=== PATIENT | female | born 1995 | race Caucasian/White ===

== ENCOUNTER 2016-11-07 12:50 | Inpatient (IN) | payer MEDICAID, OTHER ==
[~2016-11-07] VITALS: Ht 152.4 cm; Wt 55.8 kg
[2016-11-07 13:48] VITALS: Ht 152.4 cm; Wt 55.8 kg
[2016-11-07] MEDS ORDERED: PRENAT PO (13:50)
[2016-11-07 14:36] LABS: ADD UMIC YES; URINE BILIRUBIN (Dip) 2+ (NEGATIVE); URINE BLOOD (Dip) 2+ (NEGATIVE); URINE COLOR YELLOW (YELLOW); URINE GLUCOSE (Dip) NEGATIVE (NEGATIVE); URINE KETONES (Dip) NEGATIVE (NEGATIVE); URINE LEUKOCYTE ESTERASE (Dip) TRACE (NEGATIVE); URINE NITRITE (Dip) NEGATIVE (NEGATIVE); URINE TOTAL PROTEIN (Dip) NEGATIVE (NEGATIVE); URINE UROBILINOGEN (Dip) 0.2 E.U./dL (0.1-1.0)
[2016-11-07 14:52] LABS: BACTERIA,URINE FEW; ICTOTEST POSITIVE (NEGATIVE)
[2016-11-07] MEDS: LACTATED RINGER'S 1,000 ML IV SCH ×2 (14:55→20:13)
[2016-11-07] MEDS ORDERED: LACTATED RINGER'S 1,000 ML IV SCH (15:06)
[2016-11-07] MEDS ORDERED: AMPICILLIN 2 GM/NS (PMX) 100 ML IV ONE (15:30)
[2016-11-07] MEDS ORDERED: LACTATED RINGER'S 1,000 ML IV PRN (15:30)
[2016-11-07] MEDS ORDERED: OXYTOCIN 30 UNITS/LR 500 ML IV PRN (15:30)
[2016-11-07] MEDS ORDERED: MISOPROSTOL 200 MCG TAB PR PRN (15:30)
[2016-11-07] MEDS ORDERED: METHYLERGONOVINE 0.2 MG INJ IM PRN (15:30)
[2016-11-07] MEDS ORDERED: CARBOPROST 250 MCG INJ IM PRN (15:30)
[2016-11-07] MEDS ORDERED: BUTORPHANOL 2 MG INJ IV PRN ×2 (15:30)
[2016-11-07] MEDS ORDERED: LIDOCAINE 1% (MPF) 30 ML INJ INJ PRN (15:30)
[2016-11-07] MEDS ORDERED: OXYTOCIN 30 UNITS/LR 500 ML IV SCH ×2 (15:30)
[2016-11-07] MEDS ORDERED: AMPICILLIN 2 GM/NS (PMX) 100 ML ONE (15:46)
[2016-11-07 16:01] LABS: ADD SCAN DIFF NO
[2016-11-07 16:04] LABS: BASOPHILS % 0.2 % (0.0-2.0); EOSINOPHILS % 0.1 % (0.0-7.0); HEMATOCRIT 40.2 % (37.0-47.0); HEMOGLOBIN 13.7 g/dl (12.0-16.0); LYMPHOCYTES # 1.5 10^3/ul (0.8-2.9); LYMPHOCYTES % 12.9 % (18.0-55.0); MEAN CORPUSCULAR HEMOGLOBIN 31.8 pg (29.0-33.0); MEAN CORPUSCULAR HGB CONC 34.1 g/dl (32.0-37.0); MEAN CORPUSCULAR VOLUME 93.3 fl (72.0-104.0); MEAN PLATELET VOLUME 13.4 fl (7.4-10.4); MONOCYTE # 0.6 10^3/ul (0.3-0.9); MONOCYTES % 5.1 % (0.0-13.0); NEUTROPHIL # 9.5 10^3/ul (1.6-7.5); NEUTROPHILS % 81.2 % (30.0-74.0); PLATELET COUNT 140 10^3/UL (140-415); RED BLOOD COUNT 4.31 10^6/ul (4.20-5.40); RED CELL DISTRIBUTION WIDTH 11.9 % (11.5-14.5); WHITE BLOOD COUNT 11.7 10^3/ul (4.8-10.8)
[2016-11-07 16:21] LABS: INR 0.84; PROTIME 11.5 Sec (12.2-14.2); PT RATIO 0.9
[2016-11-07 16:22] LABS: PARTIAL THROMBOPLASTIN TIME 23.5 Sec (25.0-35.0)
[2016-11-07] MEDS: AMPICILLIN 1 GM/NS (PMX) 50 ML IV SCH ×2 (20:13→23:39)
[2016-11-08] MEDS: AMPICILLIN 1 GM/NS (PMX) 50 ML IV SCH (03:30)
[2016-11-08] MEDS: LACTATED RINGER'S 1,000 ML IV* SCH ×3 (04:18→20:18)
--- NOTE | 2016-11-08 04:18 | LDN ---
Date/Time of Note Date/Time of Note DATE: 11/08/16 TIME: 04:17 Delivery Summary Placenta Delivered: Spontaneously Meconium: Thick Perineum intact?: Yes Perineal laceration repair: 1st degree vaginal laceration repair with 3-0 chromic Anesthesia type: Local Sponge & Needle done & correct: Yes All needle counts correct: Yes Any foreign bodies felt in the: No Problems: Infant Delivery Information Sex Infant Sex: male Apgars 1 Minute: 8 5 Minute: 9 Suctioning Nose & mouth suctioned at nola: No Delee suction performed: No Umbilical Cord Umbilical cord with: 3 Vessels Cord presentations: nuchal cord Nuchal cord present X: 1 Cord Blood was obtained: Yes HERMES HDEZ MD Nov 08, 2016 04:18
[2016-11-08] MEDS ORDERED: CARBOPROST 250 MCG INJ IM PRN (04:30)
[2016-11-08] MEDS ORDERED: SENNA/DOCUSATE NA (8.6MG/50MG) TAB PO PRN (04:30)
[2016-11-08] MEDS ORDERED: OXYTOCIN 30 UNITS/LR 500 ML IV PRN (04:30)
[2016-11-08] MEDS ORDERED: METHYLERGONOVINE 0.2 MG INJ IM PRN (04:30)
[2016-11-08] MEDS ORDERED: ONDANSETRON 4 MG INJ IV PRN (04:30)
[2016-11-08] MEDS ORDERED: WITCH HAZEL/GLYCERIN PAD PR PRN (04:30)
[2016-11-08] MEDS ORDERED: BENZOCAINE 20% 56 ML SPRAY TOP PRN (04:30)
[2016-11-08] MEDS ORDERED: OXYCODONE/ASPIRIN (4.88/325) TAB PO PRN ×2 (04:30)
[2016-11-08] MEDS ORDERED: MISOPROSTOL 200 MCG TAB PR PRN (04:30)
--- NOTE | 2016-11-08 05:05 | HP ---
DATE OF ADMISSION: 11/07/2016 HISTORY OF PRESENT ILLNESS: The patient is a 20-year-old 1, para 0, EDC 11/17/2016 intraut erine at term presented to triage complaining of regular contractions with greenish discha rge. Her care initially took place at 4 weeks. However, the patient had no show from 26 w eeks on. Her care took place at [facility] up to 26 weeks' gestational age whe re the patient had not care afterwards. PAST MEDICAL HISTORY: None. MEDICATIONS: vitamins. PAST SURGICAL HISTORY: None. OBSTETRIC HISTORY: Primigravid. GYNECOLOGIC HISTORY: Regular, 3 to 4 days. Denies any sexually transmitted disease and sexually ac tive with 1 partner. SOCIAL HISTORY: Denies any smoking, drugs or alcohol. FAMILY HISTORY: None. PHYSICAL EXAMINATION: HEENT: Within normal. LUNGS: CTA bilateral. CARDIOVASCULAR: S1, S2, regular rhythm. ABDOMEN: Gravid, nontender. Negative CVA bilateral. EXTREMITIES: Negative edema. No calf tenderness. PELVIC: Vaginal exam 3 cm dilated, 80% effaced, -2 station with positive meconium. heart tra cing category 1. Assumption regular contractions. ASSESSMENT: A 20-year-old 1, para 0, intrauterine at term in labor, positive meco nium, limited care. PLAN: Expected vaginal delivery. Dictated By: HERMES ESPINOSA/MARKOS Conf#: [id number] DID#: [id number]
[2016-11-08] MEDS: OXYTOCIN 30 UNITS/LR 500 ML IV SCH ×5 (05:10→21:00)
[2016-11-08 05:33] LABS: BARBITURATES NEGATIVE (NEGATIVE); BENZODIAZEPINES NEGATIVE (NEGATIVE); CANNABINOIDS NEGATIVE (NEGATIVE); COCAINE NEGATIVE (NEGATIVE); OPIATES NEGATIVE (NEGATIVE)
[2016-11-08] MEDS: SENNA/DOCUSATE NA (8.6MG/50MG) TAB PO SCH ×2 (09:00→21:00)
[2016-11-08 09:20] VITALS: BP 137/74; PULSE 66; RESP 18
[2016-11-08] MEDS: IBUPROFEN 600 MG TAB PO SCH ×4 (11:44→23:40)
[2016-11-08 11:50] VITALS: BP 121/72; PULSE 68; RESP 19
[2016-11-08 16:00] VITALS: BP 112/65; PULSE 80; RESP 18
[2016-11-08 20:00] VITALS: BP 115/67; PULSE 79; RESP 18
[2016-11-08 23:30] VITALS: BP 113/58; PULSE 68; RESP 19
[2016-11-09] MEDS: OXYTOCIN 30 UNITS/LR 500 ML IV SCH ×2 (01:00→05:00)
[2016-11-09 04:00] VITALS: BP 120/73; PULSE 65; RESP 18
[2016-11-09] MEDS: LACTATED RINGER'S 1,000 ML IV* SCH (04:18)
[2016-11-09] MEDS: IBUPROFEN 600 MG TAB PO SCH ×4 (05:30→23:38)
[2016-11-09 08:00] LABS: ADD SCAN DIFF NO
[2016-11-09 08:15] LABS: BASOPHILS % 0.2 % (0.0-2.0); EOSINOPHILS % 0.4 % (0.0-7.0); HEMATOCRIT 32.1 % (37.0-47.0); LYMPHOCYTES # 2.2 10^3/ul (0.8-2.9); LYMPHOCYTES % 21.7 % (18.0-55.0); MEAN CORPUSCULAR HEMOGLOBIN 32.4 pg (29.0-33.0); MEAN CORPUSCULAR HGB CONC 34.3 g/dl (32.0-37.0); MEAN CORPUSCULAR VOLUME 94.4 fl (72.0-104.0); MEAN PLATELET VOLUME 13.1 fl (7.4-10.4); MONOCYTE # 0.7 10^3/ul (0.3-0.9); MONOCYTES % 6.5 % (0.0-13.0); NEUTROPHIL # 7.1 10^3/ul (1.6-7.5); NEUTROPHILS % 70.7 % (30.0-74.0); PLATELET COUNT 126 10^3/UL (140-415); RED CELL DISTRIBUTION WIDTH 12.2 % (11.5-14.5)
[2016-11-09 08:20] VITALS: BP 118/67; PULSE 67; RESP 16
[2016-11-09] MEDS: SENNA/DOCUSATE NA (8.6MG/50MG) TAB PO SCH ×2 (09:32→21:23)
[2016-11-09 15:44] VITALS: BP_SYST 107; BP_SYST 136; BP_DIAS 40; BP_DIAS 55; PULSE 73; RESP 18
--- NOTE | 2016-11-09 18:55 | QN ---
Documentation Comment ppd 1 vs stable afebrile abd soft nt uterine fundus below umbillicus extremity no edema no calf tenderness a/ sp vaginal delivery doing well ppd 1 p/ iron supplement d/c tomorrow f/u office in 3 weeks HERMES HDEZ MD Nov 09, 2016 18:55
--- NOTE | 2016-11-09 18:57 | PD.PPDC ---
FABRICATION MANAGER Discharge Instruction Condition Patient Condition: Good Diet Diet: Resume Regular Diet Activity/Restrictions Restrictions: No Sexual Activity Nothing in the Vagina No [place] No Tampons, douche Follow-up Follow-up with Physician: 3, Week/Weeks Return to clinic for EDGE WORKER Instructions: Fever greater than 101 Chills Worsening abdominal pain Excessive Vaginal Bleeding More than 2 pads per hour Unable to tolerate diet OB Instructions: Breast Tenderness Depression Blurried Vision Headache Surgical Instructions: Incisional Drainage Incisional Redness HERMES HDEZ MD Nov 09, 2016 18:56
[2016-11-09 19:40] VITALS: BP 122/80; PULSE 62; RESP 18
[2016-11-10 03:30] VITALS: BP 122/80; PULSE 69; RESP 19
[2016-11-10] MEDS: IBUPROFEN 600 MG TAB PO SCH ×2 (05:35→11:57)
--- NOTE | 2016-11-10 07:11 | DS ---
DATE OF ADMISSION: 11/07/2016 DATE OF DISCHARGE: PRIMARY DIAGNOSIS: Intrauterine at term in labor. PROCEDURE: Normal spontaneous vaginal delivery. CONDITION ON DISCHARGE: Stable. ACTIVITY: None per vagina, no lifting x6 weeks. DIET: Regular. MEDICATIONS ON DISCHARGE: Motrin, iron and Colace. DISCHARGE SUMMARY: Ms. Luna Corral is a 20-year-old 1, para 1, status post normal spontan eous vaginal delivery on 11/08/2016. She had a viable male, Apgars 8 and 9 respectively at 1 and 5 minutes. She had an uneventful day 1. She was discharged on day 2. She is a mbulating, tolerating diet, positive flatulence, positive bowel movement. She will follow up in the clinic in 3 weeks for care. Dictated By: HERMES ESPINOSA/MARKOS Conf#: [id number] DID#: [id number]
[2016-11-10 07:30] VITALS: BP 125/84; PULSE 59; RESP 17
[2016-11-10] MEDS: SENNA/DOCUSATE NA (8.6MG/50MG) TAB PO SCH (09:44)
== END 2016-11-10 15:25 | disposition home or self-care (01) | DRG 775 ==
LOC: OBT 12:50 → L-D 12:51 → OBT 15:06 → L-D 15:11 → PP1 11-08 09:06
PROVIDERS: ADMIT Obstetrics & Gynecology; ATTEND Obstetrics & Gynecology
PROC: 10E0XZZ Delivery of Products of Conception, External Approach (ICD-10-PCS; principal; 2016-11-08)
PROC: 0HQ9XZZ Repair Perineum Skin, External Approach (ICD-10-PCS; 2016-11-08)
DX: O70.0 First degree perineal laceration during delivery (principal); Z37.0 Single live birth; Z3A.38 38 weeks gestation of pregnancy
CPT/HCPCS: 36415; 80307; 81001; 81003; 85025; 85610; 85730; 86592; 86900; 86901; 99464; G0463; J0290; J2590; J7120

== ENCOUNTER 2019-03-27 11:49 | Inpatient (IN) | payer OTHER ==
[~2019-03-27] VITALS: Ht 152.4 cm; Wt 50.7 kg
[~2019-03-27 11:49] MED LIST: PRENAT PO
[2019-03-27 12:00] VITALS: Ht 152.4 cm; Wt 50.7 kg
[2019-03-27 12:01] VITALS: BP 100/65; PULSE 81; RESP 18
[2019-03-27] MEDS ORDERED: BUTORPHANOL 2 MG INJ IV PRN (14:00)
[2019-03-27] MEDS ORDERED: LIDOCAINE 1% (MPF) 30 ML INJ INJ PRN (14:00)
[2019-03-27] MEDS ORDERED: AMPICILLIN 2 GM/NS (PMX) 100 ML IV ONE (14:00)
[2019-03-27] MEDS ORDERED: MISOPROSTOL 200 MCG TAB PR PRN (14:00)
[2019-03-27] MEDS ORDERED: OXYTOCIN 30 UNITS/LR 500 ML IV SCH ×3 (14:00)
[2019-03-27] MEDS ORDERED: METHYLERGONOVINE 0.2 MG INJ IM PRN (14:00)
[2019-03-27] MEDS ORDERED: CARBOPROST 250 MCG INJ IM PRN (14:00)
[2019-03-27] MEDS ORDERED: IBUPROFEN 600 MG TAB PO PRN (14:00)
[2019-03-27] MEDS ORDERED: OXYTOCIN 30 UNITS/LR 500 ML IV PRN (14:00)
[2019-03-27] MEDS: LACTATED RINGER'S 1,000 ML IV SCH ×2 (15:09→21:43)
--- NOTE | 2019-03-27 16:45 | HP ---
Date/Time of Note Date/Time of Note DATE: 03/27/19 TIME: 16:42 OB - History Hx of Present Free Text/Dictation 23 years old 2 para 1-0-0-1 with single intrauterine at 37 weeks and 6 days with a PEDRO of 04/11/2019 complaining of uterine contractions. She states good movement. She denies nausea, vomiting, shortness of breath, chest pain, headache, visual changes, vaginal bleeding or LOF. Chief Complaint: Uterine contractions Estimated Due Date: Apr 11, 2019 : 2 Para: 1 Spontaneous : 0 Therapeutic : 0 Care: Good Care Ultrasounds: Normal mid trimester US Obstetrical Complications: None Medical Complications: None Past Family/Social History * Past Medical, Surgical, Family and Obstetric Histories reviewed from chart. Blood Type: O+ Rubella: immune RPR/VDRL: Negative GBS Status: Positive HBsAG: Negative OB Admission Exam Vital Signs Vital Signs Vital Signs Date Temp Pulse Resp B/P (MAP) Pulse Ox O2 O2 Flow FiO2 Time Delivery Rate 03/27/19 98.2 81 18 100/65 Room Air 12:01 (77) Physical Exam HEENT: WNL Heart: Rhythm Normal Lungs: Clear Abdomen: WNL Extremities: Normal Cervical Dilatation: 4cm Effacement: 50% Station: -3 Membranes: Intact Heart Rate: 130's Accelerations: Accelerations Present Decelerations: No Decelerations Varibility: Moderate Contractions on Admission: < 5 Minutes Apart Intensity: Moderate Last 72 hours Lab Results CBC & BMP 03/27/19 14:55 OB Assessment/Plan Other plan: 23 years old 2 para 1-0-0-1 with single intrauterine at 37 weeks and 6 days in labor -FHR: No sign of metabolic acidosis- Category I -Continuous EFM, toco -CBC, blood type and screen -Analgesia options with R/B/A discussed in detail with patient -Epidural per patient request -Ultrasound performed, EFW 3089 g -Please see the orders -O+/Rubella: Immune -GBS: Positive, ampicillin ordered Admission, procedures, expectations, risks and possible complications have been discussed in detail with the patient. Risk of vaginal delivery including but not limited to bleeding, infection, cervical laceration, placental retention, injury to fetus, blood transfusion, blood transfusion related infection, risk of anesthesia, adhesion, cervical laceration, episiotomy/laceration, possible delivery with risk of bleeding, infection, injury to other organs (bowel, bladder, ureter, vessels, nerves), injury to fetus, blood transfusion, blood transfusion related infection, risk of anesthesia, scar and hernia formation, needs for future , removal of uterus or any other indicated surgery discussed with the patient. She expressed understanding and repeats the risks. All of her questions were answered. She signed the informed consent. PHYSICIAN'S VERIFICATION OF INFORMED CONSENT The patient was counseled regarding the procedure, its indications, risks, potential complications and alternatives and any questions were answered. Consent was obtained. PLANNED PROCEDURE/TREATMENT: Vaginal delivery, episiotomy, repair of laceration possible delivery JG PONCE Mar 27, 2019 16:45
[2019-03-27] MEDS: AMPICILLIN 1 GM/NS (PMX) 50 ML IV SCH ×2 (19:18→23:05)
[2019-03-28] MEDS: AMPICILLIN 1 GM/NS (PMX) 50 ML IV SCH ×4 (02:39→14:00)
[2019-03-28] MEDS: LACTATED RINGER'S 1,000 ML IV SCH ×3 (06:20→21:46)
--- NOTE | 2019-03-28 07:58 | LDN ---
Date/Time of Note Date/Time of Note DATE: 03/28/19 TIME: 07:55 Delivery Summary 23 years old 2 para 1-0-0-1 with single intrauterine at 37 weeks and 6 days with a PEDRO of 04/11/2019 s/p of viable . After delivery of the head the rest of the body delivered easily. I did not apply excessive traction. Placenta delivered spontaneously and intact. evaluation of the placenta confirmed intact placenta. Uterus was firm with cervix closed on exam. no lacerations. Placenta Delivered: Spontaneously Episiotomy: No Perineal laceration: 0 Anesthesia type: None Estimated blood loss: 300 Sponge & Needle done & correct: Yes All needle counts correct: Yes Any foreign bodies felt in the: No Infant Delivery Information Sex Infant Sex: female Apgars 1 Minute: 9 5 Minute: 9 Suctioning Nose & mouth suctioned at nola: No Delee suction performed: No Umbilical Cord Umbilical cord with: 3 Vessels Cord presentations: no nuchal cord Nuchal cord present X: 0 Cord Blood was obtained: Yes Mother & Baby Disposition Disposition Mom & Baby to Maternity; Good: Yes JÚNIOR CELAYA MD Mar 28, 2019 07:58
[2019-03-28] MEDS ORDERED: BENZOCAINE 20% 56 ML SPRAY TOP PRN (08:00)
[2019-03-28] MEDS ORDERED: MISOPROSTOL 200 MCG TAB PR PRN (08:00)
[2019-03-28] MEDS ORDERED: DIPHENHYDRAMINE 50 MG INJ IV PRN (08:00)
[2019-03-28] MEDS ORDERED: LANOLIN HPA 1 PKT TOP PRN (08:00)
[2019-03-28] MEDS ORDERED: OXYTOCIN 30 UNITS/LR 500 ML IV PRN (08:00)
[2019-03-28] MEDS ORDERED: CARBOPROST 250 MCG INJ IM PRN (08:00)
[2019-03-28] MEDS ORDERED: NA PHOSPHATE/BIPHOS 133 ML ENEMA PR PRN (08:00)
[2019-03-28] MEDS ORDERED: ONDANSETRON 4 MG TAB PO PRN (08:00)
[2019-03-28] MEDS ORDERED: ONDANSETRON 4 MG INJ IV PRN (08:00)
[2019-03-28] MEDS ORDERED: WITCH HAZEL/GLYCERIN PAD PR PRN (08:00)
[2019-03-28] MEDS ORDERED: SENNA/DOCUSATE NA (8.6MG/50MG) TAB PO PRN (08:00)
[2019-03-28] MEDS ORDERED: HYDROCODONE/APAP (5/325) TAB PO PRN ×2 (08:00)
[2019-03-28] MEDS ORDERED: DIBUCAINE 1% 30 GM OINT TOP PRN (08:00)
[2019-03-28] MEDS ORDERED: DIPHENHYDRAMINE 25 MG CAP PO PRN (08:00)
[2019-03-28] MEDS ORDERED: MAGNESIUM HYDROXIDE 30ML CUP PO PRN (08:00)
[2019-03-28 09:35] VITALS: BP 103/57; PULSE 69; RESP 18
[2019-03-28 12:00] VITALS: BP 99/57; PULSE 59; RESP 18
[2019-03-28] MEDS: IBUPROFEN 600 MG TAB PO SCH ×2 (12:01→18:00)
[2019-03-28] MEDS: SENNA/DOCUSATE NA (8.6MG/50MG) TAB PO SCH ×2 (12:01→22:01)
[2019-03-28] MEDS: LACTATED RINGER'S 1,000 ML IV* SCH ×3 (12:07→23:58)
[2019-03-28 15:30] VITALS: BP 102/53; PULSE 60; RESP 18
[2019-03-28 20:00] VITALS: BP 106/62; PULSE 63; RESP 18
[2019-03-29] MEDS: IBUPROFEN 600 MG TAB PO SCH ×5 (00:20→23:36)
[2019-03-29 04:40] VITALS: BP 110/57; PULSE 61; RESP 18
[2019-03-29] MEDS: LACTATED RINGER'S 1,000 ML IV SCH (05:46)
[2019-03-29] MEDS: LACTATED RINGER'S 1,000 ML IV* SCH (07:58)
[2019-03-29 08:00] VITALS: BP 104/61; PULSE 59; RESP 18
[2019-03-29] MEDS: SENNA/DOCUSATE NA (8.6MG/50MG) TAB PO SCH ×2 (09:22→20:22)
[2019-03-29 15:49] VITALS: BP 106/57; PULSE 56; RESP 18
[2019-03-29 19:30] VITALS: BP 112/69; PULSE 60; RESP 20
--- NOTE | 2019-03-29 21:07 | QN ---
Documentation Comment vss afebrile taking shower according to patient 's no c/o PP cbc 9.6/11.3,32.5/187 A stable s/p #1 P discharge home in am RICHARDSON SIFUENTES MD Mar 29, 2019 21:06
[2019-03-30 04:07] VITALS: BP 107/68; PULSE 60; RESP 19
[2019-03-30] MEDS: IBUPROFEN 600 MG TAB PO SCH ×2 (05:39→11:54)
[2019-03-30 08:30] VITALS: BP 98/56; PULSE 56; RESP 18
[2019-03-30] MEDS ORDERED: DIPHTH/TET/ACEL PERTUSS (ADULT) 0.5 ML VIAL IM* ONE (09:00)
[2019-03-30] MEDS ORDERED: VARICELLA VACCINE LIVE/PF 1,350 UNIT/0.5 ML ML SC* ONE (09:00)
[2019-03-30] MEDS ORDERED: MEASLES,MUMPS,RUBELLA VACCINE INJ SC* ONE (09:00)
[2019-03-30] MEDS: SENNA/DOCUSATE NA (8.6MG/50MG) TAB PO SCH (10:22)
[2019-03-30] MEDS ORDERED: MEDROXYPROGESTERONE 150 MG INJ SYG IM ONE (13:00)
--- NOTE | 2019-03-31 15:35 | DELSUM ---
Delivery Summary A-C Datetime Report Generated by CPN: 03/31/2019 15:35 DELIVERY PERSONNEL [employer] Applications Analyst: Ladonna Boudreaux MATERNAL INFORMATION Delivery Anesthesia: None Medications in Delivery: LR with 30 units of pitocin Delivery QBL (ml): 300 Placenta Cultured: No Maternal Complications: None LABOR SUMMARY EDC: 04/11/2019 00:00 No. Babies in Womb: 1 Attempted: No Labor Anesthesia: None LABOR INFORMATION Reason for Induction: Not Applicable Onset of Labor: 03/27/2019 13:09 Complete Dilatation: 03/28/2019 07:37 Group B Beta Strep: Positive Antibiotics # of Doses: 5 Antibiotics Time of Last Dose: 03/28/2019 06:20 Steroids Given: None Reason Steroids Not Administered: Not Applicable MEMBRANES Membranes Rupture Method: Artificial Rupture of Membranes: 03/28/2019 07:10 Length of Rupture (hr): 0.58 Amniotic Fluid Color: Clear Amniotic Fluid Amount: Small Amniotic Fluid Odor: None STAGES OF LABOR Stage 1 hr: 18 Stage 1 min: 28 Stage 2 hr: 0 Stage 2 min: 8 Stage 3 hr: 0 Stage 3 min: 3 Total Time in Labor hr: 18 Total Time in Labor min: 39 VAGINAL DELIVERY Episiotomy: None Laceration Extension: N/A Laceration Type: None Laceration Repair: Not Applicable Initial Vag Sponge Count: 10 Final Vag Sponge Count: 10 Initial Vag Sharps Count: 1 Final Vag Sharps Count: 1 Sponge Count Correct: Yes; Vaginal Sweep Performed Sharps Count Correct: Yes BABY A INFORMATION Delivery Date/Time: 03/28/2019 07:45 Method of Delivery: Vaginal Born in Route : No : N/A Forceps: N/A Vacuum Extraction: N/A Shoulder Dystocia : N/A SHOULDER DYSTOCIA BABY A Infant Delivery Date/Time: 03/28/2019 07:45 PRESENTATION/POSITION BABY A Presentation: Cephalic Cephalic Presentation: Vertex Breech Presentation: N/A PLACENTA INFORMATION BABY A Placenta Delivery Time : 03/28/2019 07:48 Placenta Method of Delivery: Expressed Placenta Status: Delivered SCORES BABY A Heart Rate 1 min: >100 bpm Resp Effort 1 min: Good Cry Reflex Irritability 1 min: Cough/Sneeze/Pulls Away Muscle Tone 1 min: Active Motion Color 1 min: Body [place], Extremit Blue Resuscitation Effort 1 min: Tactile Stimulation SCORE 1 MIN: 9 Heart Rate 5 min: >100 bpm Resp Effort 5 min: Good Cry Reflex Irritability 5 min: Cough/Sneeze/Pulls Away Muscle Tone 5 min: Active Motion Color 5 min: Body [place], Extremit Blue Resuscitation Effort 5 min: Tactile Stimulation SCORE 5 MIN: 9 INFORMATION BABY A Gestational Age at Delivery: 38.0 Gestational Status: Early Term- 37- 38.6 Weeks Infant Outcome : Liveborn, with signs of life Infant Condition : Stable Sex: Female IDENTIFICATION/MEDS BABY A ID Band Number: [id number] ID Band Location: Right Leg; Left Arm Sensor Applied: Yes Sensor Number: [id number] Sensor Location : Cord Clamp Vitamin K Given : Not Given Erythromycin Given: Not Given WEIGHT/LENGTH BABY A Birthweight (gm): 2680 Weight (lb): 5 Infant Weight (oz): 15 Infant Length (in): 19.00 Length (cm): 48.26 CORD INFORMATION BABY A No. Cord Vessels: 3 Nuchal Cord : N/A Cord Blood Taken: Yes Infant Suction: Mouth; Nose ASSESSMENT BABY A Infant Complications: None Physical Findings at Delivery: Within Normal Limits Respirations: Appears Normal Heavy Equipment Mechanic/ALS Called : No Care By: DENISE Transferred To: Remains with Mother
--- NOTE | 2019-04-04 02:48 | DS ---
Date/Time of Note Date/Time of Note DATE: 04/04/19 TIME: 02:47 Obstetrical Discharge Record Final Diagnosis Final Diagnosis: Term delivered Other Final Diagnosis Late entry note. Patient seen on 03/30/2019 23 years old 2 para 1-0-0-1 with single intrauterine at 38 weeks s/p normal vaginal delivery. course was unremarkable. She is ablating and tolerating regular diet. She voiding without difficulty. Pain is controlled on current medication. She discharged home in stable condition with follow-up with her primary OB Condition on Discharge Physical Assessment Voiding: Yes Bowel Movement: Yes Breast: Soft, non-tender Fundus: Firm Calf Tenderness: No Patient Condition: Stable JG PONCE Apr 04, 2019 02:48
== END 2019-03-30 15:35 | disposition home or self-care (01) | DRG 807 ==
LOC: L-D 11:49 → OBT 11:49 → L-D 13:40 → PP1 03-28 09:46
PROVIDERS: ADMIT Obstetrics & Gynecology; ATTEND Obstetrics & Gynecology
PROC: 10E0XZZ Delivery of Products of Conception, External Approach (ICD-10-PCS; principal; 2019-03-28)
DX: O99.824 Streptococcus B carrier state complicating childbirth (principal); Z37.0 Single live birth; Z3A.37 37 weeks gestation of pregnancy
CPT/HCPCS: 76815; 85025; 85610; 85730; 86592; 86850; 86900; 86901; 87340; 90716; G0463; J0290; J0595; J1050; J2590; J7120